=== PATIENT | male | born 1965 | race American Indian/Alaskan Native ===

== ENCOUNTER 2017-11-07 07:17 | Outpatient (CLI) | payer OTHER ==
--- NOTE | 2017-11-12 11:26 | XRay Report ---
XRAY RIGHT KNEE 4 THREE VIEWS: 11/07/17 CLINICAL: Right knee pain. FINDINGS: Normal medial joint space but small medial osteophytes. Slight widening of the lateral joint space with minimal osteophyte formation. Moderate patellofemoral joint osteoarthritis with narrowing of the joint space and osteophytes. A quadriceps insertion enthesophyte. A prominent soleal line on both views represents a "tug" lesion at the origin of the soleus muscle and is not pathologic. No fracture or dislocation. No joint effusion. Normal soft tissues. IMPRESSION: Moderate osteoarthritis. Tibial pseudo-periostitis.
== END 2017-11-07 07:18 | disposition home or self-care (01) ==
LOC: SPVIMAG 07:17
PROVIDERS: ATTEND Orthopaedic Surgery
DX: M17.11 Unilateral primary osteoarthritis, right knee (principal); M86.8X5 Other osteomyelitis, thigh